=== PATIENT | male | born 2000 | race Caucasian/White ===

== ENCOUNTER 2019-01-14 19:53 | Emergency (ER) | payer BC, OTHER ==
[~2019-01-14] VITALS: Wt 105.7 kg
[~2019-01-14 19:53] MED LIST: IBUP-1542 PO
--- NOTE | 2019-01-14 21:05 | ERD ---
ER Documentation Chief Complaint Chief Complaint CP X'S 15 MIN, C/O PRESSURE AT LOWER STERNUM HPI 18-year-old male presents due to having an episode of chest pain and shortness of breath earlier today. States the episode lasted about 15 minutes and self resolved. Denies having any history of chest pain. Denies SOB, dyspnea, lower extremity swelling or pain, pain on exertion, diaphoresis, nausea, radiating of pain, recent travel or immobilization, hemoptysis, dsypnea, history of clotting disorder, syncope, fever, or cough. In addition he has had a fever since last night denies cough, nausea, vomiting, diarrhea, abdominal pain. ROS All systems reviewed and are negative except as per history of present illness. Medications Home Meds Active Scripts Oseltamivir Phosphate* (Tamiflu*) 75 Mg Capsule, 75 MG PO BID for flu for 5 Days, CAP Prov:SHARI MEJIA 01/14/19 Ibuprofen* (Motrin*) 600 Mg Tab, 600 MG PO Q6H PRN for PAIN AND OR ELEVATED TEM P, #30 TAB Prov:SHARI MEJIA 01/14/19 Ibuprofen* (Motrin*) 600 Mg Tab, 600 MG PO Q6H PRN for PAIN AND OR ELEVATED TEMP, #30 TAB Prov:HOMER SIERRA MD 08/12/16 Ibuprofen* (Motrin*) 600 Mg Tab, 600 MG PO Q6, #20 TAB Prov:ABDIRASHID CUNHA PA-C 06/30/16 Ibuprofen* (Motrin*) 600 Mg Tab, 600 MG PO Q6, #30 TAB 0 Refills Prov:ABHIJEET STEELE PA-C 01/15/16 Allergies Allergies: Coded Allergies: No Known Allergy (Unverified , 06/30/16) PMhx/Soc Medical and Surgical Hx: pt denies Medical Hx, pt denies Surgical Hx History of Surgery: No Anesthesia Reaction: No Hx Neurological Disorder: No Hx Respiratory Disorders: No Hx Cardiac Disorders: No Hx Psychiatric Problems: No Hx Miscellaneous Medical Probl: No (MOM DENIES MEDICAL AND SURGICAL HISTORY.) Hx Alcohol Use: No Hx Substance Use: No Hx Tobacco Use: No Smoking Status: Never smoker Physical Exam Vitals Vital Signs Date Temp Pulse Resp B/P (MAP) Pulse Ox O2 O2 Flow FiO2 Time Delivery Rate 01/14/19 102.6 128 18 159/88 98 20:00 (111) Physical Exam Const: No acute distress Head: Atraumatic Eyes: Normal Conjunctiva ENT: Normal External Ears, Nose and Mouth. Neck: Full range of motion. No meningismus. Resp: Clear to auscultation bilaterally Cardio: Regular rate and rhythm, no murmurs Abd: Soft, non tender, non distended. Normal bowel sounds Skin: No petechiae or rashes Back: No midline or flank tenderness Ext: No cyanosis, or edema Neur: Awake and alert Psych: Normal Mood and Affect Result Diagram: 01/14/19210401/14/192104 Results 24 hrs Laboratory Tests Test 01/14/19 21:05 White Blood Count 9.0 10^3/ul Red Blood Count 5.77 10^6/ul Hemoglobin 16.7 g/dl Hematocrit 49.0 % Mean Corpuscular Volume 84.9 fl Mean Corpuscular Hemoglobin 28.9 pg Mean Corpuscular Hemoglobin Concent 34.1 g/dl Red Cell Distribution Width 11.9 % Platelet Count 162 10^3/UL Mean Platelet Volume 11.9 fl Immature Granulocytes % 0.300 % Neutrophils % 82.2 % Lymphocytes % 6.2 % Monocytes % 9.9 % Eosinophils % 1.1 % Basophils % 0.3 % Nucleated Red Blood Cells % 0.0 /100WBC Immature Granulocytes # 0.030 10^3/ul Neutrophils # 7.4 10^3/ul Lymphocytes # 0.6 10^3/ul Monocytes # 0.9 10^3/ul Eosinophils # 0.1 10^3/ul Basophils # 0.0 10^3/ul Nucleated Red Blood Cells # 0.0 10^3/ul Sodium Level 141 mmol/L Potassium Level 3.9 mmol/L Chloride Level 100 mmol/L Carbon Dioxide Level 28 mmol/L Anion Gap 13 Blood Urea Nitrogen 17 mg/dl Creatinine 1.02 mg/dl Est Glomerular Filtrat Rate mL/min > 60 mL/min Glucose Level 93 mg/dl Calcium Level 10.2 mg/dl Total Bilirubin 1.3 mg/dl Direct Bilirubin 0.00 mg/dl Indirect Bilirubin 1.3 mg/dl Aspartate Amino Transf (AST/SGOT) 34 IU/L Alanine Aminotransferase (ALT/SGPT) 40 IU/L Alkaline Phosphatase 106 IU/L Troponin I < 0.012 ng/ml Total Protein 8.5 g/dl Albumin 5.1 g/dl Globulin 3.40 g/dl Albumin/Globulin Ratio 1.50 Current Medications Medications Dose Sig/Yolis Start Time Status Last (Trade) Ordered Route PRN Stop Time Admin Dose Reason Admin Ibuprofen 600 mg ONCE ONCE 01/14/19 DC 01/14/19 (Motrin) PO 21:30 01/14/19 21:14 21:31 Procedures/MDM EKG: Rate/Rhythm: Normal Sinus Rhythm QRS, ST, T-waves: No changes consistent w/ acute ischemia Impression: No evidence of ischemia or arrhythmia DIAGNOSTIC IMAGING REPORT Patient: SHARI ARNETT : 2000 Age: 18 Sex: M MR #: [id number] DOS: 01/14/192050 Ordering MD: SHARI MEJIA Location: [facility] Room/Bed: PROCEDURE: XR Chest. CLINICAL INDICATION: chest pain TECHNIQUE: Single frontal view of the chest was obtained COMPARISON: None FINDINGS: The heart and mediastinum are within normal limits. The lungs are clear. There is no pleural effusion or pneumothorax. RPTAT: AA IMPRESSION: No acute disease. .John Gregory MD, MD Date Time Electronically viewed and signed by .John Gregory MD, MD on 01/14/2019 21:31 .S/ CC: SHARI MEJIA [phone] 18-year-old male presents due to having an episode of chest pain and shortness of breath earlier today. States the episode lasted about 15 minutes and self resolved. Denies having any history of chest pain. Denies SOB, dyspnea, lower extremity swelling or pain, pain on exertion, diaphoresis, nausea, radiating of pain, recent travel or immobilization, hemoptysis, dsypnea, history of clotting disorder, syncope, fever, or cough. In addition he has had a fever since last night denies cough, nausea, vomiting, diarrhea, abdominal pain. Chest x-ray, EKG, labs, and troponin were ordered. All within normal limits. Influenza was positive. Patient given Rx for Tamiflu and ibuprofen. I have low suspicition for acute coronary syndrome, pulmonary embolism, aortic dissection, AAA, pneumothorax, esophageal rupture, pericarditis, myocarditis, or pneumonia based on EKG, imaging, labs, patient history and exam. Patient discharged with strict ER precautions. Patient advised to follow up with PMD. All questions answered at discharge. Departure Diagnosis: Primary Impression: Chest wall pain Additional Impression: Influenza Condition: Stable SHARI MEJIA Jan 14, 2019 21:05
[2019-01-14] MEDS ORDERED: IBUP-1542 PO (21:07)
[2019-01-14] MEDS ORDERED: IBUPROFEN 600 MG TAB PO ONE (21:30)
[2019-01-14] MEDS ORDERED: OSEL75CA23 PO (21:41)
[2019-01-14 22:03] VITALS: BP 131/77; PULSE 112; RESP 19
== END 2019-01-14 22:11 | disposition home or self-care (01) ==
LOC: FTE 19:53
DX: J10.1 Influenza due to other identified influenza virus with other respiratory manifestations (principal); R07.89 Other chest pain
CPT/HCPCS: 36415; 71045; 80053; 84484; 85025; 87400; 93005